=== PATIENT | female | born 1975 | race Two or more races ===

== ENCOUNTER 2024-01-15 14:44 | Emergency (ER) | payer BC, OTHER ==
[~2024-01-15] VITALS: Ht 170.2 cm; Wt 87.0 kg
[2024-01-15 15:55] LABS: Basophils # (auto) 0.1 10 ^3/uL (0-0.2); Eosinophils # (auto) 0.4 10 ^3/uL (0-0.8); Monocytes # (auto) 0.4 10 ^3/uL (0-1.3); White Blood Cell 4.9 10^3/uL (4.4-10.8)
[2024-01-15 15:58] LABS: Basophils % (auto) 1.5 % (0.0-2.0); Eosinophils % (auto) 7.8 % (0.0-7.0); Hematocrit 23.3 % (36.0-46.0); Lymphocytes # (auto) 1.2 10 ^3/uL (0.4-5.4); Lymphocytes % (auto) 24.8 % (10.0-50.0); Mean Corpuscular Hemoglobin 17.8 pg (28.0-32.0); Mean Corpuscular Hgb Conc. 28.5 g/dL (32.0-36.0); Mean Corpuscular Volume 62.4 fL (80.0-100.0); Monocytes % (auto) 7.8 % (0.0-12.0); Neutrophils # (auto) 2.9 10 ^3/uL (1.6-8.6); Neutrophils % (auto) 58.1 % (37.0-80.0); Nucleated Red Blood Cells % 0.3 %; Platelet Count (auto) 458 10^3/uL (140-450); Red Blood Cells 3.74 10^6/uL (4.0-5.20)
[2024-01-15 16:00] LABS: Chloride 108 mmol/L (98-107); Potassium 3.6 mmol/L (3.5-5.1); Sodium 137 mmol/L (136-145)
[2024-01-15 16:01] LABS: Anion Gap 5 (5-15); Carbon Dioxide 24 mmol/L (20-31)
[2024-01-15 16:02] LABS: Calcium 9.2 mg/dL (8.7-10.4)
[2024-01-15 16:06] LABS: Blood Urea Nitrogen 8 mg/dL (9-23); Glucose 115 mg/dL (74-106)
[2024-01-15 16:07] LABS: Hemoglobin 6.6 g/dL (12.2-16.2); Red Cell Distribution Width 20.9 % (11.8-14.3)
[2024-01-15 17:36] LABS: Anisocytosis Slight; Hypochromia Marked; Platelet Estimate Adequate
[2024-01-15 17:58] VITALS: PULSE 70; RESP 16; O2SAT 100
[2024-01-15 18:30] VITALS: BP 139/85; PULSE 73; RESP 16; TEMP 98.4
[2024-01-15 18:59] VITALS: BP 148/91; PULSE 66; RESP 12; TEMP 98.5
[2024-01-15 19:15] VITALS: PULSE 74; RESP 20; O2SAT 100
[2024-01-15 19:21] LABS: Urine Bacteria None Seen /hpf (None Seen)
[2024-01-15 20:00] LABS: Urine Blood Negative /uL (Negative); Urine Clarity Clear (Clear); Urine Color Colorless (Yellow); Urine Protein, UAD Negative (Negative); Urine Specific Gravity 1.012 (1.001-1.035); Urine Urobilinogen Normal (Negative); Urine WBC <1 /hpf (0 - 5)
[2024-01-15 20:20] VITALS: BP 163/92; PULSE 70; RESP 12; TEMP 98.1
[2024-01-15 21:00] VITALS: BP 145/77; PULSE 71; RESP 19; O2SAT 100
== END 2024-01-15 21:49 | disposition home or self-care (01) ==
LOC: ER 14:44
DX: D64.9 Anemia, unspecified (principal); Z98.890 Other specified postprocedural states
CPT/HCPCS: 36415; 36430; 80048; 81001; 85025; 86850; 86900; 86901; 86920; 99285; P9016

== ENCOUNTER → 2024-01-21 | Outpatient (CLI) | payer BC ==
[2024-01-21 12:55] LABS: Basophils # (auto) 0.1 10 ^3/uL (0-0.2); Eosinophils # (auto) 0.2 10 ^3/uL (0-0.8); Platelet Count (auto) 304 10^3/uL (140-450)
[2024-01-21 12:57] LABS: Hematocrit 30.7 % (36.0-46.0); Lymphocytes # (auto) 2.1 10 ^3/uL (0.4-5.4); Lymphocytes % (auto) 26.1 % (10.0-50.0); Mean Corpuscular Hgb Conc. 29.3 g/dL (32.0-36.0); Mean Corpuscular Volume 68.4 fL (80.0-100.0); Monocytes # (auto) 0.4 10 ^3/uL (0-1.3); Monocytes % (auto) 5.4 % (0.0-12.0); Neutrophils # (auto) 5.2 10 ^3/uL (1.6-8.6); Neutrophils % (auto) 64.5 % (37.0-80.0); Nucleated Red Blood Cells % 0.3 %; Red Blood Cells 4.49 10^6/uL (4.0-5.20); Red Cell Distribution Width 24.9 % (11.8-14.3); White Blood Cell 8.1 10^3/uL (4.4-10.8)
[2024-01-21 13:39] LABS: Platelet Estimate Adequate
[2024-01-21 13:40] LABS: Anisocytosis Moderate; Free T4 (Free Thyroxine) 1.04 ng/dL (0.89-1.76); Hypochromia Marked
[2024-01-21 13:41] LABS: Follicle Stimulating Hormone 18.24 IU/L (SEE BELOW)
[2024-01-22 08:06] LABS: Estradiol 79.5 pg/mL (.); Thyroxine (T4) 7.8 ug/dL (4.5-12.0)
== END | disposition home or self-care (01) ==
LOC: LAB 12:12
PROVIDERS: ATTEND Obstetrics & Gynecology
DX: N95.1 Menopausal and female climacteric states (principal)
CPT/HCPCS: 36415; 82670; 83001; 83002; 84403; 84436; 84439; 84443; 85025

== ENCOUNTER 2024-12-31 20:30 | Emergency (ER) | payer BC ==
[~2024-12-31] VITALS: Ht 170.2 cm; Wt 82.0 kg
[2024-12-31 20:33] VITALS: BP 180/100; PULSE 64; RESP 16; TEMP 98.5; O2SAT 100
[2024-12-31] MEDS: OXYCODONE W/ ACETAMINOPHEN 5/325MG TABLET PO ONE (22:33)
== END 2024-12-31 22:35 | disposition left against medical advice (07) ==
LOC: ER 20:30
DX: H57.12 Ocular pain, left eye (principal); Z53.21 Procedure and treatment not carried out due to patient leaving prior to being seen by health care provider